=== PATIENT | male | born 1995 | race Caucasian/White ===

== ENCOUNTER → 2017-12-07 | Outpatient (CLI) | payer OTHER ==
[2017-12-08 08:07] LABS: RUBEOLA (MEASLES) IGG <25.0 AU/mL (Immune >29.9)
[2017-12-10 19:14] LABS: RUBEOLA (MEASLES) IGM <0.80 AU (0.00-0.79)
== END | disposition home or self-care (01) ==
LOC: EMPHLTH 10:46
PROVIDERS: ATTEND Internal Medicine
DX: Z02.1 Encounter for pre-employment examination (principal)
CPT/HCPCS: 86706; 86735; 86762; 86765; 86787

== ENCOUNTER 2019-01-09 21:34 | Emergency (ER) | payer OTHER ==
[~2019-01-09] VITALS: Ht 175.3 cm; Wt 75.0 kg
[2019-01-09 22:06] VITALS: BP 152/86
== END 2019-01-09 23:00 | disposition home or self-care (01) ==
LOC: EMS 21:35
DX: M79.632 Pain in left forearm (principal); R11.0 Nausea